=== PATIENT | male | born 1985 | race Caucasian/White ===

== ENCOUNTER 2024-08-17 23:12 | Emergency (ER) | payer OTHER ==
[2024-08-18] MEDS: Lidocaine 1% 10 ML MDV INJECT ONE (01:08)
[2024-08-18] MEDS: Sulfamethoxazole/Trimethoprim 800-160 MG Tab PO ONE (03:00)
== END 2024-08-18 03:03 | disposition home or self-care (01) ==
LOC: MW.ED 23:12
DX: L02.415 Cutaneous abscess of right lower limb (principal); Z79.899 Other long term (current) drug therapy
CPT/HCPCS: 10060; 99283; A9270; J3490